=== PATIENT | female | born 1995 | race Caucasian/White ===

== ENCOUNTER 2017-11-06 17:34 | Emergency (ER) | payer OTHER ==
[2017-11-06] MEDS ORDERED: ACETAMINOPHEN 500 MG TAB PO ONE (17:36)
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
[2017-11-06 17:43] VITALS: BP 139/92
== END 2017-11-06 18:05 | disposition home or self-care (01) ==
LOC: EDUNIT#
DX: S80.211A Abrasion, right knee, initial encounter (principal); S80.212A Abrasion, left knee, initial encounter; S90.811A Abrasion, right foot, initial encounter; S90.812A Abrasion, left foot, initial encounter; S60.511A Abrasion of right hand, initial encounter; S60.512A Abrasion of left hand, initial encounter; S09.90XA Unspecified injury of head, initial encounter; Y04.8XXA Assault by other bodily force, initial encounter; Y92.521 Bus station as the place of occurrence of the external cause; Y99.9 Unspecified external cause status; Y93.9 Activity, unspecified